=== PATIENT | male | born 1980 | race Caucasian/White ===

== ENCOUNTER 2021-03-01 09:59 | Outpatient (CLI) | payer OTHER | END 2021-03-01 10:00 | disposition home or self-care (01) | LOC: EDBD → EDUNIT# 09:59 → PET 09:59 → MERGE 10:15 | PROVIDERS: ATTEND Internal Medicine Hematology & Oncology | DX: C18.7 Malignant neoplasm of sigmoid colon (principal); K63.89 Other specified diseases of intestine | CPT/HCPCS: 78815; A9552 ==

== ENCOUNTER 2021-05-26 10:15 | Outpatient (CLI) | payer BC | END 2021-05-26 10:16 | disposition home or self-care (01) | LOC: PET 10:15 | PROVIDERS: ATTEND Internal Medicine Hematology & Oncology | DX: C18.7 Malignant neoplasm of sigmoid colon (principal); C78.00 Secondary malignant neoplasm of unspecified lung; C79.51 Secondary malignant neoplasm of bone; C77.8 Secondary and unspecified malignant neoplasm of lymph nodes of multiple regions; D50.8 Other iron deficiency anemias | CPT/HCPCS: 78815; 80053; 82378; A9552 ==

== ENCOUNTER 2021-08-26 16:50 | Inpatient (IN) | payer BC ==
[~2021-08-26 16:50] MED LIST: Iopamidol-370 76% 500 ML 1 ML ONE
[2021-08-26 17:45] VITALS: BMI 23.6
[2021-08-26] MEDS ORDERED: Ondansetron PF 4 MG/2 ML Vial IVP PRN (18:28)
[2021-08-26] MEDS ORDERED: Ondansetron ODT 4 MG TAB PO PRN (18:28)
[2021-08-26 19:43] LABS: ALT (SGPT) 583 U/L (8-55); AST (SGOT) 251 U/L (5-34); Albumin 3.5 g/dL (3.5-5.0); Alkaline Phosphatase 885 U/L (40-110); Anion Gap 12 mmol/L (10-20); BUN (Urea Nitrogen) 9 mg/dL (8.9-20.6); Bilirubin, Total 7.6 mg/dL (0.2-1.2); Calc. Creatinine Clearance 151 mL/min (70-130); Calcium 8.7 mg/dL (7.8-10.44); Carbon Dioxide 24 mmol/L (22-29); Chloride 103 mmol/L (98-107); Globulin 3.5 g/dL (2.4-3.5); Glucose 87 mg/dL (70-105); Potassium 3.9 mmol/L (3.5-5.1); Sodium 135 mmol/L (136-145)
[2021-08-26] MEDS: Famotidine 20 MG TAB PO SCH (21:27)
[2021-08-26] MEDS: Sodium Chloride 0.9% 1,000 ML IV SCH (21:28)
[2021-08-27 07:39] VITALS: BP 126/79; TEMP 98.2
[2021-08-27] MEDS: Famotidine 20 MG TAB PO SCH (08:11)
[2021-08-27] MEDS: Sodium Chloride 0.9% 1,000 ML IV SCH (08:11)
[2021-08-27] MEDS ORDERED: ALPRAZolam 0.25 MG TAB PO PRN (09:55)
[2021-08-27 15:49] LABS: SARS-CoV-2 PCR by NAA Not Detected (NotDetected)
== END 2021-08-27 15:12 | disposition home or self-care (01) | DRG 375 ==
LOC: MSONC 17:09 → INTOOBSV 17:09 → OBSVTOIN 08-27 08:11
PROVIDERS: ADMIT Internal Medicine; ATTEND Hospitalist
DX: C18.9 Malignant neoplasm of colon, unspecified (principal); C78.7 Secondary malignant neoplasm of liver and intrahepatic bile duct; C79.00 Secondary malignant neoplasm of unspecified kidney and renal pelvis; C77.1 Secondary and unspecified malignant neoplasm of intrathoracic lymph nodes; C77.2 Secondary and unspecified malignant neoplasm of intra-abdominal lymph nodes; Z20.822 Contact with and (suspected) exposure to COVID-19; Z90.49 Acquired absence of other specified parts of digestive tract; Z92.21 Personal history of antineoplastic chemotherapy
CPT/HCPCS: 36415; 71260; 74177; G0378; J7050; Q9967; U0003; U0005

== ENCOUNTER 2021-10-18 22:35 | Emergency (ER) | payer BC ==
[2021-10-18] MEDS ORDERED: Ondansetron PF 4 MG/2 ML Vial ONE (23:00)
[2021-10-18] MEDS ORDERED: Promethazine HCl 12.5 MG SUPP ONE (23:02)
[2021-10-18] MEDS ORDERED: Promethazine HCl 25 MG in Sodium Chloride 0.9% 50 ML IVPB SCH (23:15)
[2021-10-19] LABS: Band 35 % (5-11); Hemoglobin 16.2 g/dL (14.0-18.0); Lymphocytes 5 % (21-51); MDiff Complete? YES; Mean Corpuscular HGB CONC 32.2 g/dL (32.0-36.0); Mean Corpuscular Hemoglobin 29.6 pg (27.0-31.0); Mean Platelet Volume 8.4 fL (7.4-10.4); Monocytes 3 % (0-10); Neutrophil 57 % (42-75); Platelet Count 175 thou/uL (130-400); RBC Distribution Width 17.7 % (11.5-14.5); Red Blood Cell (RBC) Count 5.46 mill/uL (4.70-6.10); White Blood Cell (WBC) Count 27.8 thou/uL (4.8-10.8)
[2021-10-19 00:01] LABS: ALT (SGPT) 38 U/L (8-55); AST (SGOT) 47 U/L (5-34); Albumin 4.1 g/dL (3.5-5.0); Alkaline Phosphatase 399 U/L (40-110); Anion Gap 18 mmol/L (10-20); BUN (Urea Nitrogen) 12 mg/dL (8.9-20.6); Bilirubin, Total 0.7 mg/dL (0.2-1.2); Calc. Creatinine Clearance 0 mL/min (70-130); Calcium 8.9 mg/dL (7.8-10.44); Carbon Dioxide 23 mmol/L (22-29); Chloride 98 mmol/L (98-107); Globulin 4.7 g/dL (2.4-3.5); Glucose 136 mg/dL (70-105); Lipase 18 U/L (8-78); Potassium 4.6 mmol/L (3.5-5.1); Protein, Total 8.8 g/dL (6.0-8.3); Sodium 134 mmol/L (136-145)
== END 2021-10-19 01:00 | disposition home or self-care (01) ==
LOC: ERS 22:35
DX: A08.4 Viral intestinal infection, unspecified (principal)
CPT/HCPCS: 80053; 83690; 85025; 96361; 96374; J2405; J2550

== ENCOUNTER 2021-11-15 10:25 | Outpatient (CLI) | payer BC ==
[2021-11-15] MEDS ORDERED: Iopamidol-370 76% 500 ML 1 ML ONE (11:43)
== END 2021-11-15 10:26 | disposition home or self-care (01) ==
LOC: BICCT 10:25
PROVIDERS: ATTEND Internal Medicine Hematology & Oncology
DX: C18.7 Malignant neoplasm of sigmoid colon (principal); C78.00 Secondary malignant neoplasm of unspecified lung; C22.9 Malignant neoplasm of liver, not specified as primary or secondary; D50.8 Other iron deficiency anemias; R59.0 Localized enlarged lymph nodes; K83.8 Other specified diseases of biliary tract
CPT/HCPCS: 71260; 74177; Q9967

== ENCOUNTER 2022-02-14 09:44 | Outpatient (CLI) | payer BC ==
[2022-02-14] MEDS ORDERED: Iopamidol-370 76% 500 ML 1 ML ONE (09:55)
== END 2022-02-14 09:45 | disposition home or self-care (01) ==
LOC: BICCT 09:44
PROVIDERS: ATTEND Internal Medicine Hematology & Oncology
DX: C18.7 Malignant neoplasm of sigmoid colon (principal); C78.00 Secondary malignant neoplasm of unspecified lung; C22.9 Malignant neoplasm of liver, not specified as primary or secondary
CPT/HCPCS: 71260; 74177; Q9967

== ENCOUNTER 2022-04-11 10:37 | Outpatient (CLI) | payer BC ==
[2022-04-11] MEDS ORDERED: Iopamidol-370 76% 500 ML 1 ML ONE (13:30)
== END 2022-04-11 10:38 | disposition home or self-care (01) ==
LOC: BICCT 10:37
PROVIDERS: ATTEND Internal Medicine Hematology & Oncology
DX: C18.7 Malignant neoplasm of sigmoid colon (principal); C78.00 Secondary malignant neoplasm of unspecified lung; C78.7 Secondary malignant neoplasm of liver and intrahepatic bile duct; R91.8 Other nonspecific abnormal finding of lung field; R59.0 Localized enlarged lymph nodes
CPT/HCPCS: 71260; 74177; Q9967

== ENCOUNTER 2022-06-27 09:57 | Outpatient (CLI) | payer BC ==
[~2022-06-27 09:57] MED LIST changes: +Iopamidol 370 76% 100 ML VIAL ONE; -Iopamidol-370 76% 500 ML 1 ML ONE
== END 2022-06-27 09:58 | disposition home or self-care (01) ==
LOC: CT 09:57
PROVIDERS: ATTEND Internal Medicine Hematology & Oncology
DX: C78.7 Secondary malignant neoplasm of liver and intrahepatic bile duct (principal); C78.00 Secondary malignant neoplasm of unspecified lung; C18.7 Malignant neoplasm of sigmoid colon; D50.8 Other iron deficiency anemias; R91.8 Other nonspecific abnormal finding of lung field; R59.0 Localized enlarged lymph nodes
CPT/HCPCS: 71260; 74177; 80053; Q9967